=== PATIENT | male | born 1960 | race African-American/Black ===

== ENCOUNTER 2018-04-23 05:54 | Day surgery (SDC) | payer MEDICAID ==
[~2018-04-23] VITALS: Ht 188 cm; Wt 96.2 kg
[2018-04-23] MEDS ORDERED: LACTATED RINGERS 1,000 ML IV SCH (06:30)
[2018-04-23] MEDS ORDERED: BUPIVACAINE/EPINEPH/PF 0.25%/0.0005 10ML ONE (07:39)
[2018-04-23] MEDS ORDERED: BACITRACIN ZINC 15GM TUBE TOP ONE (07:39)
[2018-04-23] MEDS ORDERED: GLYCOPYRROLATE 0.2 MG/ML 2ML VIAL ONE (07:54)
[2018-04-23] MEDS ORDERED: LIDOCAINE HCL/PF 1% 10 MG/ML 5ML VIAL ONE (07:54)
[2018-04-23] MEDS ORDERED: PROPOFOL 200MG/20ML VIAL IV ONE (07:54)
[2018-04-23] MEDS ORDERED: SUCCINYLCHOLINE CHLORIDE 200MG/10ML IV ONE (07:54)
[2018-04-23] MEDS ORDERED: MIDAZOLAM HCL 2 MG/2 ML VIAL ONE (07:54)
[2018-04-23] MEDS ORDERED: FENTANYL CITRATE/PF 50MCG/ML 2ML VIAL ONE (07:54)
[2018-04-23] MEDS ORDERED: ONDANSETRON HCL 4MG/2ML INJ ONE (07:55)
[2018-04-23] MEDS ORDERED: METOCLOPRAMIDE HCL 10MG/2ML VIAL ONE (07:55)
[2018-04-23] MEDS ORDERED: LOSA50TA20 PO (08:04)
[2018-04-23] MEDS ORDERED: AMLO10TA80 PO (08:04)
[2018-04-23] MEDS ORDERED: HYDR25TA PO (08:04)
[2018-04-23] MEDS ORDERED: VALS320T16 PO (08:04)
[2018-04-23] MEDS ORDERED: MORPHINE SULFATE/PF 1MG/ML 10ML AMP ONE (09:11)
[2018-04-23] MEDS ORDERED: HYDROCODONE/ACETAMINOPHEN 10/325MG TABLET PO PRN (09:30)
[2018-04-23] MEDS ORDERED: SODIUM CHLORIDE 0.9% 1,000 ML IV ONE (09:38)
[2018-04-23] MEDS ORDERED: HYDROMORPHONE HCL/PF 2MG/ML CPJ IV PRN (09:45)
[2018-04-23] MEDS ORDERED: MEPERIDINE HCL/PF 25MG/ML CPJ IV PRN (09:45)
[2018-04-23] MEDS ORDERED: ONDANSETRON HCL 4MG/2ML INJ IV PRN (09:45)
== END 2018-04-23 11:20 | disposition home or self-care (01) ==
LOC: OR 05:54
PROVIDERS: ATTEND Orthopaedic Surgery
DX: S83.242A Other tear of medial meniscus, current injury, left knee, initial encounter (principal); S83.282A Other tear of lateral meniscus, current injury, left knee, initial encounter; X58.XXXA Exposure to other specified factors, initial encounter; Y93.89 Activity, other specified; Y92.89 Other specified places as the place of occurrence of the external cause; Y99.8 Other external cause status; M94.262 Chondromalacia, left knee; M65.9 Synovitis and tenosynovitis, unspecified; M79.4 Hypertrophy of (infrapatellar) fat pad; I10 Essential (primary) hypertension; Z79.899 Other long term (current) drug therapy; Z98.890 Other specified postprocedural states; Z72.89 Other problems related to lifestyle
CPT/HCPCS: 29880; 88304; 88311; 97116; J0171; J0330; J2250; J2405; J2765; J3010; J3490; J7120; J2274; J2704

== ENCOUNTER 2023-03-09 02:40 | Inpatient (IN) | payer MEDICAID ==
[~2023-03-09] VITALS: Ht 188 cm; Wt 91.3 kg
[~2023-03-09 02:40] MED LIST: AMLO10TA80 PO; HYDR25TA PO; LOSA50TA41 PO; VALS320T16 PO
[2023-03-09] MEDS ORDERED: ASPIRIN 81MG TABLET PO ONE (03:15)
[2023-03-09] MEDS ORDERED: NITROGLYCERIN 0.4MG TABLET SL SL PRN (03:15)
[2023-03-09 03:24] LABS: BASOPHILS % 0.6 % (0.0-2.0); EOSINOPHILS % 1.4 % (0.0-5.0); HEMATOCRIT. 36.9 % (42.0-52.0); HEMOGLOBIN. 12.7 g/dL (14.0-18.0); LYMPHOCYTES % 14.5 % (20.0-50.0); MEAN CORPUSCULAR HEMOGLOBIN 31.7 pg (28.0-32.0); MEAN CORPUSCULAR HGB CONC 34.5 g/dL (31.0-37.0); MEAN CORPUSCULAR VOLUME 91.7 fL (80.0-94.0); MEAN PLATELET VOLUME 7.2 fl (7.4-10.4); MONOCYTES % 4.5 % (2.0-8.0); PLATELET 269 x1000/uL (130-400); RED BLOOD CELL COUNT 4.02 mill/uL (4.7-6.1); RED CELL DISTRIBUTION WIDTH 13.6 % (11.6-14.6); WHITE BLOOD COUNT 7.6 x1000/uL (4.5-11.0)
[2023-03-09 03:54] LABS: CHLORIDE 107 mEq/L (98-107); INDEX HEMOLYSI 1 (1-3); INDEX ICTERIC 1 (1-4); INDEX LIPEMIC 1 (1-3); POTASSIUM 3.2 mEq/L (3.5-5.1); SODIUM 137 mEq/L (136-145)
[2023-03-09 04:03] LABS: ALANINE AMINOTRANSFERASE 18 IU/L (13-61); ALBUMIN 3.8 g/dL (3.4-5.0); ASPARTATE AMINOTRANSFERASE 16 IU/L (15-37); BILIRUBIN TOTAL 0.2 mg/dL (0.1-1.0); CALCIUM 8.9 mg/dL (8.5-10.1); CARBON DIOXIDE 28 mEq/L (21-32); CREATININE 1.2 mg/dL (0.6-1.3); GLUCOSE 91 mg/dL (70-105); PROTEIN TOTAL 7.9 g/dL (6.0-8.3); TROPONIN I HIGH SENSITIVITY 8 ng/L (<78); UREA NITROGEN BLOOD 17 mg/dL (7-21)
[2023-03-09] MEDS ORDERED: POTASSIUM CHLORIDE 20MEQ TABLET SR PO ONE (04:15)
[2023-03-09] MEDS ORDERED: LORAZEPAM 0.5MG TABLET PO PRN (06:30)
[2023-03-09] MEDS ORDERED: IPRATROPIUM/ALBUTEROL 0.5-3(2.5)MG/3ML NEB HHN PRN (06:30)
[2023-03-09] MEDS ORDERED: ONDANSETRON HCL 4MG/2ML INJ IV PRN (06:30)
[2023-03-09 08:13] LABS: CALCIUM 8.5 mg/dL (8.5-10.1); CHLORIDE 108 mEq/L (98-107); INDEX HEMOLYSI 1 (1-3); INDEX ICTERIC 1 (1-4); INDEX LIPEMIC 1 (1-3); POTASSIUM 3.2 mEq/L (3.5-5.1); SODIUM 137 mEq/L (136-145)
[2023-03-09 08:21] LABS: CARBON DIOXIDE 26 mEq/L (21-32); CREATININE 1.1 mg/dL (0.6-1.3); GLUCOSE 101 mg/dL (70-105); TROPONIN I HIGH SENSITIVITY 9 ng/L (<78); UREA NITROGEN BLOOD 14 mg/dL (7-21)
[2023-03-09] MEDS: THIAMINE HCL 100MG TABLET PO SCH (09:00)
[2023-03-09] MEDS: ENOXAPARIN 40MG/0.4ML SYR SUBCUT SCH (09:00)
[2023-03-09] MEDS: HYDROCHLOROTHIAZIDE 25MG TABLET PO SCH (09:00)
[2023-03-09] MEDS: AMLODIPINE 10MG TABLET PO SCH (09:00)
[2023-03-09] MEDS: FOLIC ACID 1MG TABLET PO SCH (09:00)
[2023-03-09] MEDS: ASPIRIN 81MG EC TABLET PO SCH (09:00)
[2023-03-09 12:28] LABS: *AMPHETAMINES SCREEN URINE NEGATIVE (NEGATIVE); *BARBITURATES SCREEN URINE NEGATIVE (NEGATIVE); *BENZODIAZEPINES SCREEN URINE NEGATIVE (NEGATIVE); *COCAINE SCREEN URINE NEGATIVE (NEGATIVE); CANNABINOID URINE SCREEN PRESUMTIVE POSITIVE (NEGATIVE); ECSTASY MDMA SCREEN URINE NEGATIVE (NEGATIVE); METHADONE URINE SCREEN NEGATIVE (NEGATIVE); OPIATES URINE SCREEN NEGATIVE (NEGATIVE); PHENCYCLIDINE URINE SCREEN NEGATIVE (NEGATIVE)
[2023-03-09 16:00] VITALS: BP 153/93; PULSE 54; RESP 20; TEMP 98.3
[2023-03-09 16:28] VITALS: BP 153/93; PULSE 56; RESP 18; TEMP 97.2
[2023-03-09] MEDS ORDERED: POTASSIUM CHLORIDE 20MEQ TABLET SR PO NR (17:00)
[2023-03-09] MEDS ORDERED: CLONIDINE 0.1MG TABLET PO PRN (17:00)
[2023-03-09 19:59] LABS: INDEX HEMOLYSI 2 (1-3)
[2023-03-09 20:00] VITALS: BP 144/94; PULSE 63; RESP 18; TEMP 98.8
[2023-03-09 20:04] LABS: IRON 36 ug/dL (50-175)
[2023-03-09 20:30] LABS: FOLIC ACID (FOLATE) SERUM 14.7 ng/mL (>5.38)
[2023-03-09] MEDS ORDERED: FAMOTIDINE 20MG TABLET PO SCH (21:00)
[2023-03-09] MEDS ORDERED: ATORVASTATIN CALCIUM 40MG TABLET PO SCH (21:00)
[2023-03-10] VITALS: BP 140/93; PULSE 59; RESP 19; TEMP 98
[2023-03-10 04:00] VITALS: BP 141/93; PULSE 60; RESP 19; TEMP 98.1
[2023-03-10 07:58] LABS: BASOPHILS % 0.7 % (0.0-2.0); EOSINOPHILS % 4.8 % (0.0-5.0); HEMATOCRIT. 44.2 % (42.0-52.0); HEMOGLOBIN. 14.7 g/dL (14.0-18.0); LYMPHOCYTES % 37.9 % (20.0-50.0); MEAN CORPUSCULAR HEMOGLOBIN 31.2 pg (28.0-32.0); MEAN CORPUSCULAR HGB CONC 33.2 g/dL (31.0-37.0); MEAN CORPUSCULAR VOLUME 93.8 fL (80.0-94.0); MEAN PLATELET VOLUME 7.9 fl (7.4-10.4); MONOCYTES % 7.7 % (2.0-8.0); NEUTROPHILS % 48.9 % (40.0-76.0); PLATELET 297 x1000/uL (130-400); RED BLOOD CELL COUNT 4.72 mill/uL (4.7-6.1); RED CELL DISTRIBUTION WIDTH 13.7 % (11.6-14.6)
[2023-03-10 08:08] VITALS: BP 132/92; PULSE 56; RESP 18; TEMP 97.5
[2023-03-10 08:11] LABS: INDEX HEMOLYSI 1 (1-3); INDEX ICTERIC 1 (1-4); INDEX LIPEMIC 1 (1-3)
[2023-03-10 08:26] LABS: ALANINE AMINOTRANSFERASE 19 IU/L (13-61); ALBUMIN 4.2 g/dL (3.4-5.0); ASPARTATE AMINOTRANSFERASE 18 IU/L (15-37); BILIRUBIN TOTAL 1.1 mg/dL (0.1-1.0); CALCIUM 9.5 mg/dL (8.5-10.1); CARBON DIOXIDE 28 mEq/L (21-32); CHLORIDE 103 mEq/L (98-107); CREATININE 1.2 mg/dL (0.6-1.3); GLUCOSE 88 mg/dL (70-105); POTASSIUM 3.7 mEq/L (3.5-5.1); PROTEIN TOTAL 8.8 g/dL (6.0-8.3); SODIUM 136 mEq/L (136-145); T4 FREE 0.97 ng/dL (0.76-1.46); THYROID STIMULATING HORMONE 0.99 uIU/mL (0.36-3.74); UREA NITROGEN BLOOD 13 mg/dL (7-21)
[2023-03-10] MEDS ORDERED: ASPI-1406 MT (08:35)
[2023-03-10] MEDS ORDERED: LOSARTAN POTASSIUM 50 MG TABLET PO SCH (09:00)
[2023-03-10] MEDS: FOLIC ACID 1MG TABLET PO SCH (09:44)
[2023-03-10] MEDS: ASPIRIN 81MG EC TABLET PO SCH (09:44)
[2023-03-10] MEDS: THIAMINE HCL 100MG TABLET PO SCH (09:44)
[2023-03-10] MEDS: AMLODIPINE 10MG TABLET PO SCH (09:45)
[2023-03-10] MEDS: ENOXAPARIN 40MG/0.4ML SYR SUBCUT SCH (09:45)
[2023-03-10] MEDS: HYDROCHLOROTHIAZIDE 25MG TABLET PO SCH (09:45)
[2023-03-10 10:12] VITALS: BP 143/89; PULSE 56; TEMP 97.8; O2SAT 100
== END 2023-03-10 10:51 | disposition home or self-care (01) | DRG 203 ==
LOC: ER 03:02 → 8WST 05:14 → EDBEDREQ 05:20
PROVIDERS: ADMIT Internal Medicine; ATTEND Internal Medicine
DX: R07.89 Other chest pain (principal); D64.9 Anemia, unspecified; E78.5 Hyperlipidemia, unspecified; E87.6 Hypokalemia; F41.1 Generalized anxiety disorder; I10 Essential (primary) hypertension; F12.90 Cannabis use, unspecified, uncomplicated
CPT/HCPCS: 36415; 71045; 80048; 80053; 80061; 80305; 82607; 82728; 82746; 83036; 83540; 84439; 84443; 84484; 85025; 93005; 93306; 99285; J1650

== ENCOUNTER 2024-10-28 10:35 | Emergency (ER) | payer MEDICAID, MEDICARE ==
[~2024-10-28] VITALS: Ht 177.8 cm; Wt 86.0 kg
[~2024-10-28 10:35] MED LIST changes: +ASPI-1406 MT; -VALS320T16 PO
[2024-10-28 10:38] VITALS: O2SAT 100
[2024-10-28 11:53] LABS: BASOPHILS % 1.3 % (0.0-2.0); EOSINOPHILS % 6.7 % (0.0-5.0); HEMATOCRIT. 36.7 % (42.0-52.0); LYMPHOCYTES % 34.1 % (20.0-50.0); MEAN CORPUSCULAR HEMOGLOBIN 30.5 pg (28.0-32.0); MEAN CORPUSCULAR HGB CONC 32.8 g/dL (31.0-37.0); MEAN CORPUSCULAR VOLUME 92.9 fL (80.0-94.0); MEAN PLATELET VOLUME 7.6 fl (7.4-10.4); MONOCYTES % 7.1 % (2.0-8.0); NEUTROPHILS % 50.8 % (40.0-76.0); PLATELET 286 x1000/uL (130-400); RED BLOOD CELL COUNT 3.95 mill/uL (4.7-6.1); RED CELL DISTRIBUTION WIDTH 13.7 % (11.6-14.6); WHITE BLOOD COUNT 5.9 x1000/uL (4.5-11.0)
[2024-10-28] MEDS: ASPIRIN 325MG TABLET PO ONE (11:58)
[2024-10-28 12:02] LABS: CHLORIDE 104 mEq/L (98-107); POTASSIUM 3.2 mEq/L (3.5-5.1); SODIUM 142 mEq/L (136-145)
[2024-10-28 12:03] LABS: CALCIUM 9.3 mg/dL (8.7-10.4); CARBON DIOXIDE 28 mEq/L (21-32)
[2024-10-28 12:08] LABS: CREATININE 1.3 mg/dL (0.6-1.3); GLUCOSE 100 mg/dL (70-105); UREA NITROGEN BLOOD 17 mg/dL (9-23)
[2024-10-28 12:09] LABS: TROPONIN I HIGH SENSITIVITY 10 ng/L (3.0-53)
[2024-10-28 12:10] LABS: ALANINE AMINOTRANSFERASE 10 IU/L (10-49); ALBUMIN 3.8 g/dL (3.2-4.8); ASPARTATE AMINOTRANSFERASE 20 IU/L (<34); BILIRUBIN DIRECT 0.1 mg/dL (<=3.0); BILIRUBIN TOTAL 0.4 mg/dL (0.1-1.0)
[2024-10-28] MEDS: POTASSIUM CHLORIDE 20MEQ/PACKET PO ONE (13:41)
[2024-10-28 14:06] VITALS: BP 119/80; PULSE 63; RESP 13; TEMP 36.6; O2SAT 100
== END 2024-10-28 14:09 | disposition home or self-care (01) ==
LOC: ER 10:35 → EDBEDREQTM 13:22 → EDBEDREQ 13:22 → ER 14:09
DX: R07.89 Other chest pain (principal); E87.6 Hypokalemia; R42 Dizziness and giddiness; R53.1 Weakness; I10 Essential (primary) hypertension; Z79.899 Other long term (current) drug therapy; Z79.82 Long term (current) use of aspirin
CPT/HCPCS: 36415; 71045; 80048; 80076; 84484; 85025; 93005; 99291; A4606